=== PATIENT | female | born 1980 | race Caucasian/White ===

== ENCOUNTER → 2016-04-19 | Outpatient (CLI) | payer BC ==
[~2016-04-19] MED LIST: PRENTAB26 PO
[2016-04-19 18:46] LABS: URINE APPEARANCE CLEAR (CLEAR); URINE BILIRUBIN NEG (NEG); URINE COLOR YELLOW; URINE EPITHELIAL CELL AUTO 0-5 /lpf (0-5); URINE NITRITE NEG (NEG); URINE SPECIFIC GRAVITY 1.003 (1.000-1.030); UROBILINOGEN NEG (NEG)
[2016-04-19 18:49] LABS: MANUAL MICROSCOPIC REQUIRED? NO; REVIEW REQ? NO
== END | disposition home or self-care (01) ==
LOC: C.LABSPEC 17:53
PROVIDERS: ATTEND Obstetrics & Gynecology
DX: O09.523 Supervision of elderly multigravida, third trimester (principal)

== ENCOUNTER → 2016-04-19 | Outpatient (CLI) | payer BC ==
[2016-04-19 21:15] LABS: GTGD 50 Grams
== END | disposition home or self-care (01) ==
LOC: C.LAB1850 13:45
PROVIDERS: ATTEND Obstetrics & Gynecology
DX: O09.523 Supervision of elderly multigravida, third trimester (principal)

== ENCOUNTER → 2016-06-07 | Outpatient (CLI) | payer BC | END | disposition home or self-care (01) | LOC: C.LABSPEC 15:39 | PROVIDERS: ATTEND Obstetrics & Gynecology | DX: O09.523 Supervision of elderly multigravida, third trimester (principal) ==

== ENCOUNTER 2016-07-01 03:31 | Inpatient (IN) | payer BC ==
[~2016-07-01] VITALS: Ht 172.7 cm; Wt 77.6 kg
[2016-07-09] MEDS ORDERED: LACTATED RINGER'S 1000ML 1,000 ML IV SCH (08:27)
[2016-07-09] MEDS ORDERED: LACTATED RINGER'S 1000ML 1,000 ML IV PRN (08:27)
[2016-07-09 08:56] LABS: MEAN CELL VOLUME 93.4 fL (80-100); MEAN CORPUSCULAR HEMOGLOBIN 31.8 pg (25-34); MEAN CORPUSCULAR HGB CONC 34.1 g/dl (32-36); MEAN PLATELET VOLUME 9.2 fL (7.4-10.4); PLATELET COUNT 163 K/uL (130-400); RED BLOOD COUNT 3.96 M/uL (4.2-5.4); WHITE BLOOD COUNT 8.03 K/uL (4.8-10.8)
[2016-07-09 09:01] VITALS: Ht 172.7 cm; Wt 77.6 kg
[2016-07-09] MEDS ORDERED: LACTATED RINGER'S 1000ML 500 ML IV PRN ×2 (10:01→11:36)
[2016-07-09] MEDS ORDERED: OXYTOCIN 30 UNITS/500ML NSS IV PRN ×2 (10:15→16:30)
[2016-07-09] MEDS ORDERED: BUPIVACAINE 0.25% 30 ML VIAL ONE (10:38)
[2016-07-09] MEDS ORDERED: EpHEDrine SULFATE INJ 50 MG/ML AMP ONE (10:38)
[2016-07-09] MEDS ORDERED: FENTANYL 2MCG/ML ROPIV 1.25MG/ML 100ML BAG EPI ONE (10:38)
[2016-07-09] MEDS ORDERED: FENTANYL CITRATE INJ 50 MCG/1 ML 2 ML VIAL ONE (10:39)
[2016-07-09] MEDS ORDERED: NALOXONE HCL INJ 1 MG in SODIUM CHLORIDE 0.9% 1000ML 1,000 ML IV PRN (11:36)
[2016-07-09] MEDS ORDERED: EpHEDrine SULFATE INJ 50 MG/ML AMP IV PRN (11:45)
[2016-07-09] MEDS ORDERED: FENTANYL 2MCG/ML ROPIV 1.25MG/ML 100ML BAG EPI PRN (11:45)
[2016-07-09] MEDS ORDERED: NALOXONE HCL INJ 0.4 MG/1 ML VIAL/CARP IV PRN (11:45)
[2016-07-09] MEDS ORDERED: NALBUPHINE HCL INJ 10 MG/ML AMP IV PRN (11:45)
[2016-07-09] MEDS ORDERED: DiphenhydrAMINE HCL 50 MG/ML VIAL IV PRN (11:45)
[2016-07-09] MEDS ORDERED: ONDANSETRON INJ 2 MG/ML 2 ML VIAL IV PRN (11:45)
[2016-07-09] MEDS ORDERED: HYDROCORTISONE ACETATE 25 MG SUPP PR PRN (16:30)
[2016-07-09] MEDS ORDERED: LANOLIN OINT EXT PRN ×2 (16:30)
[2016-07-09] MEDS ORDERED: BENZOCAINE 20% AER SPR 82.5 GM CAN EXT PRN (16:30)
[2016-07-09] MEDS ORDERED: DIPHTHERIA/TETANUS/PERTUSSIS 0.5 ML SYR/VIAL IM. ONE (16:30)
[2016-07-09] MEDS ORDERED: SUPERCREAM 0.870 % 15GM JAR EXT PRN (16:30)
[2016-07-09] MEDS ORDERED: ACETAMINOPHEN/CODEINE 300/30MG TAB PO PRN ×2 (16:30)
[2016-07-09] MEDS ORDERED: ACETAMINOPHEN 325 MG TAB PO PRN (16:30)
[2016-07-09] MEDS ORDERED: OXYTOCIN INJ 20 UNITS in LACTATED RINGER'S 1000ML 1,000 ML IV SCH (16:32)
[2016-07-09] MEDS ORDERED: IBUPROFEN 600 MG TAB PO PRN (16:45)
--- NOTE | 2016-07-09 16:50 | DELIVERY SUMMARY ---
DATE OF OPERATION: 07/09/2016 SUMMARY: The patient dilated to complete and pushed to deliver a viable female infant Apgars 8 and 9 via over second degree perineal laceration. Mouth and nose bulb suctioned at the perineum. Shoulders and body delivered with ease. Infant vigorous and crying at . Cord clamped and cut. The baby was on the maternal abdomen. Placenta delivered spontaneously intact. 3-vessel cord. Hemostasis achieved with dilute Pitocin and uterine massage. Laceration repaired in the usual fashion using 3-0 Vicryl. EBL 300 mL. Mother and baby stable in recovery. I attest to the content of the Intraoperative Record and any orders documented therein. Any exceptio ns are noted below.
--- NOTE | 2016-07-09 18:31 | Anesthesia Procedure Note ---
Anesthesia Epidural Removal Nt Date & Time Jul 09, 2016 at 18:31 Vital Signs Pain Intensity: 0.0 Notes Mental Status: alert / awake / arousable, participated in evaluation Nausea / Vomiting: adequately controlled Pain: adequately controlled Airway Patency, RR, SpO2: stable & adequate BP & HR: stable & adequate Hydration State: stable & adequate Neuraxial Anesthesia: was administered Anesthetic Complications: no major complications apparent, pt satisfied with anesthetic care Epidural: removed without complications, with tip intact
[2016-07-09 20:30] VITALS: BP 103/72; PULSE 95; TEMP 36.6; O2SAT 96
[2016-07-09] MEDS: DOCUSATE SODIUM 100 MG CAP PO SCH (20:38)
[2016-07-09 23:45] VITALS: BP 116/74; PULSE 60; TEMP 36.5; O2SAT 100
[2016-07-10 03:45] VITALS: BP 101/67; PULSE 59; TEMP 36.5; O2SAT 97
--- NOTE | 2016-07-10 06:42 | Discharge Instructions ---
Discharge Instructions Date of Service Jul 10, 2016. Admission Reason for Admission: Induction Discharge Discharge Diagnosis / Problem: s/p vaginal delivery Discharge Goals Goal(s): Routine recovery after delivery Medications Continue Dispensed Medications: supercream, dermaplast, tucks, lansinoh Activity Recommendations Activity Limitations: as noted below . Instructions / Follow-Up Instructions / Follow-Up ACTIVITY RECOMMENDATIONS: * Gradual return to full activity over the next 2-3 weeks. * No lifting - nothing heavier than baby over the next 2-3 weeks. * Do not engage in vigorous exercise, sexual activity or sports until cleared by your physician. * Do not drive or operate any motorized equipment until cleared by your physician. * You may shower/bathe daily. MEDICATIONS: For discomfort or pain, you may use Acetaminophen (Tylenol), Ibuprofen (Advil), or Naproxen (Aleve) following the package directions. For constipation you may use Colace following the package directions. BREAST CARE: If you are not breast feeding: * Wear a supportive bra 24 hours a day for one to two weeks. * Avoid stimulating your breasts and nipples as much as possible during the first few weeks after delivery. * When taking a shower, have the warm water hit your back, not breasts. * When your breasts feel full, apply ice packs. Usually three to four times a day helps ease the discomfort. * Take a mild pain medication (Tylenol / Motrin) when you are uncomfortable. If breast feeding: * Use breast milk to lubricate nipples. Lansinoh cream may be used for sore nipples. You do not need to remove cream prior to breast feeding. If using a different brand of cream, check the label for directions regarding removal of cream prior to nursing. * Wear a supportive bra. * If having problems with breasts or breast feeding, call a specialty development consultant or your health care provider. EPISIOTOMY CARE: After delivery, if you have an episiotomy (stitches), the following steps will ease discomfort and aid healing. * For the first 24 hours after delivery, place ice packs next to your episiotomy to help reduce swelling. * After the first 24 hour-period, sitz baths, either portable or in the tub, are suggested. A shower with a shower arm sprayed over the episiotomy may be comforting. * Tigist care should be done after each voiding and bowel movement. Squirt warm water from a plastic bottle over the perineum (region of the body between the anus and urinary opening) and pat dry. * Use Dermoplast to ease discomfort. Shake container. [place] directly over the episiotomy. Place a Tucks on a clean sanitary pad next to your episiotomy. SPECIAL CARE INSTRUCTIONS: When you are discharged from the hospital, it is important for you to follow the instructions listed below: * During the first week at home, you should be able to care for yourself and your baby. In addition, the usual light household activities are encouraged. * Limit your activities to the way you feel. Do not try to clean the house or move furniture. Be sensible. * If you actively engage in sports and have done so up until the time of your delivery, you may resume these activities as soon as you feel able. This may take up to one month or even longer. Use good judgment. * Continue to take your vitamins for at least six weeks after the of your baby. * Your diet need not be limited unless you were on a special diet before your delivery. Breast-feeding mothers need around 2500 calories per day and at least 64-80 ounces of fluid per day (8 to 10 glasses). * You should eat foods from the four major food groups. Crash diets or fad diets are to be avoided. Eating lean meats, fresh fruits and vegetables, low-fat dairy products, high fiber foods and a regular exercise program, will help you get back to your pre- weight without putting your health at risk. * Constipation is sometimes a problem after delivery. Take a mild laxative as needed. If breast feeding, Milk of Magnesia is acceptable to use. You may use a suppository or Fleets enema if no episiotomy. * A daily shower or tub bath is suggested. Be sure to thoroughly and gently dry the perineum. * A bloody vaginal discharge will usually continue until around four weeks post . A small amount of bleeding may continue for as long as six weeks. Vaginal discharge changes from the bright red bleeding after delivery to pink then brownish and finally yellowish-pink before becoming white and disappearing. * Bleeding may increase with activity. Your first period may come in 4-8 weeks. If you are breast feeding, your period may be delayed even longer. * [place] (sex) can begin whenever both you and your partner feel comfortable and do not have any form of genital infection. It is recommended that you wait at least six weeks for internal and external healing to occur. If you have questions, please talk to your health care practitioner. A condom should be used to prevent infection and . * Foreplay, gentle intercourse and lubrication is very important the first several times to prevent pain. A water-based lubricant such as K-Y jelly or Astroglide may be used. * If you have RH negative blood and your baby is RH positive, you will receive RHOGAM by injection prior to discharge. The nurse will give you a card to keep with you that has the date and place that you received RHOGAM after delivery. * During your care, you had a Rubella screen done to check for the presence of rubella antibodies in your blood. If your test was negative, you will receive a Rubella vaccine prior to discharge. This vaccine may cause a fever, soreness at the injection site and flu-like symptoms. If these symptoms persist, notify your health care practitioner. is not advised for one month after a Rubella vaccine. * Verbalizes understanding of car seat law as reviewed with patient nursing. * Car Seat hand-out given and reviewed with patient by nursing. * Shaken baby information reviewed with patient by nursing. Call you doctor if: * Heavy bleeding (saturating several pads an hour) or passing clots the size of your fist. * A fever >101 degrees F (38.3 degrees C) on two occasions four hours apart and /or chills. * Unusual pain in the pelvic or vaginal areas. * "Baby Blues" lasting longer than two weeks. If you have any questions or concerns, call your health care practitioner at . FOLLOW UP VISIT: * Please call the office at to schedule a 6 week examination. It is important you keep this appointment. It is important for you to make arrangements for either yearly or twice yearly check-ups thereafter. Current Hospital Diet Patient's current hospital diet: Vegetarian Diet, Gluten Free Diet, Low Lactose Diet Discharge Diet Recommended Diet: Regular Diet Pending Studies Studies pending at discharge: no Medical Emergencies . Who to Call and When: Medical Emergencies: If at any time you feel your situation is an emergency, please call 911 immediately. . Non-Emergent Contact Non-Emergency issues call your: Specialist Field Engineer Call Non-Emergent contact if: you have a fever, temperature is above 101 . . "Provider Documentation" section prepared by Junior Becerril. . VTE Core Measure Inpt VTE Proph given/why not?: Treatment not indicated
--- NOTE | 2016-07-10 06:46 | Progress Note ---
Subjective Jul 10, 2016. Subjective conversation w/ patient, physical exam, lab review Ambulation: ambulating normally Voiding: no voiding problems Passing Gas: Yes Diet Tolerance: Regular Diet Lochia: Moderate (passing clots) Feeding Type: Breast Feeding Pain: improves with medication Comment: Patient was seen at the bedside. No acute event overnight. Review of Systems Constitutional: No fever Respiratory: No shortness of breath Cardiac: No chest pain Breast: No breast lump Abdomen: No nausea, No pain, No vomiting Female : No dysuria Denies headache Objective Vital Signs Date Time Temp Pulse Resp B/P Pulse Ox O2 Delivery O2 Flow Rate FiO2 07/10/16 03:45 36.5 59 16 101/67 97 Room Air 07/09/16 23:45 36.5 60 18 116/74 100 Room Air 07/09/16 23:45 Room Air 07/09/16 20:30 36.6 95 16 103/72 96 Room Air Physical Exam General Appearance: WELL-APPEARING, WD/WN, NO APPARENT DISTRESS Respiratory/Chest: chest non-tender, lungs clear, normal breath sounds Cardiovascular: regular rate, rhythm Abdomen: normal bowel sounds, non tender, soft Fundus: Firm, Relation to Umbilicus (1cm below) Extremities: non-tender, no pedal edema, no calf tenderness Laboratory Results Last 24 Hours Test 07/09/16 08:45 White Blood Count 8.03 K/uL Red Blood Count 3.96 M/uL Hemoglobin 12.6 g/dL Hematocrit 37.0 % Mean Corpuscular Volume 93.4 fL Mean Corpuscular Hemoglobin 31.8 pg Mean Corpuscular Hemoglobin Concent 34.1 g/dl RDW Standard Deviation 44.1 fL RDW Coefficient of Variation 12.9 % Platelet Count 163 K/uL Mean Platelet Volume 9.2 fL Medications Current Inpatient Medications Medications (Trade) Dose Ordered Sig/Kendrick Route Start Time Stop Time Status Last Admin Dose Admin Lactated Ringer's 1,000 ml @ 125 mls/hr Q8H IV 07/09/16 08:27 07/11/16 08:26 07/09/16 12:54 125 MLS/HR Lactated Ringer's (Lr 1000ml) 1,000 ml @ 999 mls/hr Q1H1M PRN IV 07/09/16 08:27 08/08/16 08:26 07/09/16 10:26 999 MLS/HR Oxytocin 30 units 30 units UD PRN IV 07/09/16 10:15 08/08/16 10:14 07/09/16 10:42 30 UNITS Lactated Ringer's (Lr 1000ml) 500 ml @ 999 mls/hr Q31M PRN IV 07/09/16 10:01 08/08/16 10:00 Fentanyl/ Ropivacaine (Fentanyl 2MCG/ Ml/Ropivacaine 1.25MG/ML) 100 ml PRN PRN EPI 07/09/16 11:45 07/10/16 11:44 Naloxone HCl 0.1 mg 0.1 mg UD PRN IV 07/09/16 11:45 07/10/16 11:44 Lactated Ringer's (Lr 1000ml) 500 ml @ 999 mls/hr Q31M PRN IV 07/09/16 11:36 07/10/16 11:35 Ephedrine Sulfate (EpHEDrine SULFATE INJ) 10 mg Q5M PRN IV 07/09/16 11:45 07/10/16 11:44 Diphenhydramine HCl (Benadryl Inj) 25 mg Q6H PRN IV 07/09/16 11:45 07/10/16 11:44 Nalbuphine HCl 5 mg 5 mg Q10M PRN IV 07/09/16 11:45 07/10/16 11:44 Naloxone HCl/ Sodium Chloride (Narcan Inj/Nss 1000ml) 1,002.5 ml @ 50 mls/hr Q20H3M PRN IV 07/09/16 11:36 07/10/16 11:35 Ondansetron HCl (Zofran Inj) 4 mg Q6H PRN IV 07/09/16 11:45 07/10/16 11:44 Prenat Multivit/ [place]/Iron/Folic Ac ( Vitamin Tab) 1 tab DAILY PO 07/10/16 08:00 08/09/16 07:59 Oxytocin (Pitocin IV) 30 units UD PRN IV 07/09/16 16:30 08/08/16 16:29 Benzocaine (Dermoplast Aero Spr) 1 appln PRN PRN EXT 07/09/16 16:30 08/08/16 16:29 07/09/16 20:57 82.5 APPLN Cocaine HCl (Supercream 0.870% Cr) BID PRN EXT 07/09/16 16:30 07/23/16 16:29 Hydrocortisone Acetate (Anusol Hc Supp) 25 mg BID PRN VT 07/09/16 16:30 08/08/16 16:29 Lanolin (Lanolin Oint) PRN PRN EXT 07/09/16 16:30 08/08/16 16:29 Ibuprofen (Motrin Tab) 600 mg Q4H PRN PO 07/09/16 16:30 08/08/16 16:29 Acetaminophen (Tylenol Tab) 650 mg Q6H PRN PO 07/09/16 16:30 08/08/16 16:29 Acetaminophen/ Codeine Phosphate (Tylenol w/ Codeine #3 Tab) 1 tab Q4H PRN PO 07/09/16 16:30 08/08/16 16:29 Acetaminophen/ Codeine Phosphate (Tylenol w/ Codeine #3 Tab) 2 tab Q4H PRN PO 07/09/16 16:30 08/08/16 16:29 Docusate Sodium 100 mg 100 mg BID PO 07/09/16 20:00 08/08/16 19:59 07/09/16 20:38 100 MG Oxytocin/Lactated Ringer's (Pitocin Inj/Lr 1000ml) 1,002 ml @ 125 mls/hr Q8H1M IV 07/09/16 16:32 07/10/16 08:33 Assessment and Plan Post- Day#: 1 Continue Routine Care: A/P: This is a 35 y/o female, , s/p normal vaginal delivery. She is ambulating and clinically stable to discharge after 24hrs. - Vital signs are reviewed and WNL (Tmax 36.6 ) - Last Hgb 12.6 - Blood type A-, GBS neg, Rubella Immune - No signs of depression. - Routine care - Discussed resting, feeding, pain control, mastitis, control, follow up in 6 weeks and reasons to call sooner, if necessary. - Continue with pain medication as needed, and continue vitamins. - Encourage breast feeding and educate about breast feeding - Patient understands and keen for home. - Plan to discharge home Resident Physician Supervision Note: I was present with Dr. Stokes during the history and exam. I discussed the case with the resident and agree with the findings and plan as documented in the note. Any exceptions or clarifications are listed here: Doing well, ready for dc home later today. f/u 6wks pp. rhogam eval. instructions reviewed. Documented By: Jessica Lew
[2016-07-10] MEDS ORDERED: PRENATAL VITAMIN TAB PO SCH (08:00)
[2016-07-10] MEDS: IBUPROFEN 600 MG TAB PO PRN ×2 (08:04→14:10)
[2016-07-10] MEDS: DOCUSATE SODIUM 100 MG CAP PO SCH (08:04)
[2016-07-10 08:20] VITALS: BP 110/68; PULSE 56; TEMP 36.7
[2016-07-10 16:30] VITALS: BP 110/67; PULSE 60; TEMP 36.5; O2SAT 99
[2016-07-10 18:20] VITALS: BP_DIAS 67; PULSE 60; TEMP 36.5
== END 2016-07-10 18:40 | disposition home or self-care (01) | DRG 775 ==
LOC: C.LD 07-09 07:38 → C.OBG 07-09 20:36
PROVIDERS: ADMIT Obstetrics & Gynecology; ATTEND Obstetrics & Gynecology
PROC: 0KQM0ZZ Repair Perineum Muscle, Open Approach (ICD-10-PCS; principal; 2016-07-09)
PROC: 10907ZC Drainage of Amniotic Fluid, Therapeutic from Products of Conception, Via Natural or Artificial Opening (ICD-10-PCS; principal; 2016-07-09)
PROC: 3E033VJ Introduction of Other Hormone into Peripheral Vein, Percutaneous Approach (ICD-10-PCS; principal; 2016-07-09)
PROC: 10E0XZZ Delivery of Products of Conception, External Approach (ICD-10-PCS; principal; 2016-07-09)
DX: O48.0 Post-term pregnancy (principal); O36.0130 Maternal care for anti-D [Rh] antibodies, third trimester, not applicable or unspecified; A69.20 Lyme disease, unspecified; Z37.0 Single live birth; O70.1 Second degree perineal laceration during delivery; O99.89 Other specified diseases and conditions complicating pregnancy, childbirth and the puerperium; O76 Abnormality in fetal heart rate and rhythm complicating labor and delivery; O26.893 Other specified pregnancy related conditions, third trimester; Z23 Encounter for immunization; Z3A.41 41 weeks gestation of pregnancy